=== PATIENT | female | born 1995 | race American Indian/Alaskan Native ===

== ENCOUNTER 2017-12-19 18:46 | Emergency (ER) | payer BC, OTHER ==
[2017-12-19 18:59] VITALS: BMI 42.4
[2017-12-19 19:02] VITALS: TEMP 98.5
[2017-12-19] MEDS ORDERED: PrednisoLONE 15 mg/5 ml Oral Syrup (240 ml) PO STA (19:23)
--- NOTE | 2017-12-19 19:23 | ED PDOC ---
Arrival/HPI - General Chief Complaint: Shortness Of Breath Time Seen by Provider: 12/19/17 18:56 Historian: Patient - History of Present Illness Narrative History of Present Illness (Text): 12/19/17 19:20 22 year old female, whose past medical history includes asthma, who presents to the ED complaining of SOB. Patient states symptoms feels similar to previous asthma attacks. Patient states she needs a breathing treatment. Patient denies any nausea, vomiting, diarrhea, chest pain, fever, chills, or any other complaints. No previous intubations or admissions for asthma 12/19/17 20:37 Time/Duration: Prior to Arrival Symptom Onset: Sudden Symptom Course: Unchanged Activities at Onset: Light Context: Home Past Medical History - Provider Review Nursing Documentation Reviewed: Yes - Infectious Disease Hx of Infectious Diseases: None - Pulmonary Hx Asthma: Yes - Psychiatric Hx Substance Use: No - Surgical History Hx Section: Yes (x2) Hx Cholecystectomy: Yes - Anesthesia Hx Anesthesia: Yes Hx Anesthesia Reactions: No Hx Malignant Hyperthermia: No Family/Social History - Physician Review Nursing Documentation Reviewed: Yes Family/Social History: Unknown Family HX Smoking Status: Never Smoked Hx Alcohol Use: No Hx Substance Use: No Allergies/Home Meds Allergies/Adverse Reactions: Allergies shellfish derived Allergy (Verified 12/19/17 18:59) SWELLING Home Medications: Home Meds Medication Instructions Recorded Confirmed Albuterol HFA [Ventolin HFA 90 1 puff IH QID 12/19/17 12/19/17 mcg/actuation (8 g)] Review of Systems - Physician Review All systems were reviewed & negative as marked: Yes - Review of Systems Constitutional: Normal Eyes: Normal ENT: Normal Respiratory: SOB Cardiovascular: Normal. absent: Chest Pain Gastrointestinal: Normal. absent: Abdominal Pain Genitourinary Female: Normal. absent: Dysuria, Frequency Musculoskeletal: Normal. absent: Back Pain, Neck Pain Skin: Normal. absent: Rash Neurological: Normal. absent: Headache, Dizziness Endocrine: Normal Hemo/Lymphatic: Normal Psychiatric: Normal Physical Exam Vital Signs Reviewed: Yes Vital Signs Temp Pulse Resp BP Pulse Ox 12/19/17 19:01 98.5 F 90 18 139/80 99 Temperature: Afebrile Blood Pressure: Normal Pulse: Regular Respiratory Rate: Normal Appearance: Positive for: Well-Appearing, Non-Toxic, Comfortable Pain Distress: None Mental Status: Positive for: Alert and Oriented X 3 - Systems Exam Head: Present: Atraumatic, Normocephalic Pupils: Present: PERRL Extroacular Muscles: Present: EOMI Conjunctiva: Present: Normal Mouth: Present: Moist Mucous Membranes Neck: Present: Normal Range of Motion Respiratory/Chest: Present: Clear to Auscultation, Good Air Exchange. No: Respiratory Distress, Accessory Muscle Use Cardiovascular: Present: Regular Rate and Rhythm, Normal S1, S2. No: Murmurs Abdomen: No: Tenderness, Distention, Peritoneal Signs Back: Present: Normal Inspection Upper Extremity: Present: Normal Inspection. No: Cyanosis, Edema Lower Extremity: Present: Normal Inspection. No: Edema Neurological: Present: GCS=15, CN II-XII Intact, Speech Normal Skin: Present: Warm, Dry, Normal Color. No: Rashes Psychiatric: Present: Alert, Oriented x 3, Normal Insight, Normal Concentration Medical Decision Making ED Course and Treatment: 12/19/17 19:27 Impression: 22 year old female presents to the ED c/o SOB today. Feels exactly alike previous asthma exacerbation. speaking in full sentences. no previous admissions or intubations Plan: -- Duoneb -- PrednisoLONE Progress Notes 12/19/17 20:41 pt in NAD with VSS. walking well, in NAD. speaking full sentences. Pt notes she has inhaler at home. To follow up w/ her PMD per her- will take steroids as ordered. Given return indications and f/u - Medication Orders Current Medication Orders: Discontinued Medications Albuterol/Ipratropium (Duoneb 3 Mg/0.5 Mg (3 Ml) Ud) 3 ml IH Q15M [facility] Stop: 12/19/17 20:01 Last Admin: 12/19/17 19:51 Dose: 3 ml Prednisolone (Prednisolone Oral Soln) 60 mg PO ONCE STA Stop: 12/19/17 19:24 - Scribe Statement The provider has reviewed the documentation as recorded by the Scribe Ana Lilia Hairston All medical record entries made by the Scribe were at my direction and personally dictated by me. I have reviewed the chart and agree that the record accurately reflects my personal performance of the history, physical exam, medical decision making, and the department course for this patient. I have also personally directed, reviewed, and agree with the discharge instructions and disposition. Disposition/Present on Arrival - Present on Arrival Any Indicators Present on Arrival: No History of DVT/PE: No History of Uncontrolled Diabetes: No Urinary Catheter: No History of Decub. Ulcer: No History Surgical Site Infection Following: None - Disposition Have Diagnosis and Disposition been Completed?: Yes Diagnosis: Asthma exacerbation Disposition: HOME/ ROUTINE Disposition Time: 20:00 Patient Problems: Current Active Problems Problem Status Onset Asthma exacerbation Acute Condition: GOOD Discharge Instructions (ExitCare): Asthma, Adult (DC) Additional Instructions: SHRUTHI VIVAR, thank you for letting us take care of you today. Your provider was Win Kee and you were treated for SOB CHEST PAIN. The emergency medical care you received today was directed at your acute symptoms. If you were prescribed any medication, please fill it and take as directed. It may take several days for your symptoms to resolve. Return to the Emergency Department if your symptoms worsen, do not improve, or if you have any other problems. Please contact your doctor or call one of the physicians/clinics you have been referred to that are listed on the Patient Visit Information form that is included in your discharge packet. Bring any paperwork you were given at discharge with you along with any medications you are taking to your follow up visit. Our treatment cannot replace ongoing medical care by a primary care provider outside of the emergency department. Thank you for allowing the [facility] team to be part of your care today. If you had an X-Ray or CT scan: A Radiologist will review the ED reading if any change in treatment is needed we will contact you. If you had a blood, urine, or wound culture: It will take several days for the results, if any change in treatment is needed we will contact you. If you had an STI test: It will take 48 hours for the results. Please call after 1 week if you have not heard back. Prescriptions: predniSONE [Prednisone] 20 mg PO BID 5 Days #10 tab Forms: [employer] (French)
[2017-12-19] MEDS: Albuterol-Ipratrop 3 mg / 0.5 (3 ml) UD IH SCH ×3 (19:33→19:51)
[2017-12-19 20:53] VITALS: BP 127/70; PULSE 93
[2017-12-19 21:16] VITALS: RESP 20; O2SAT 98
--- NOTE | 2017-12-20 21:02 | CARD ---
APPROVED REPORT Date of service: 12/19/2017 EKG Measurement Heart [id number] <Conclusion> Normal sinus rhythm Normal ECG
== END 2017-12-19 21:14 | disposition home or self-care (01) ==
LOC: MERGE 18:46 → ED 18:46
DX: J45.901 Unspecified asthma with (acute) exacerbation (principal)